=== PATIENT | female | born 1955 | race Caucasian/White ===

== ENCOUNTER → 2017-08-10 | Day surgery (SDC) | payer OTHER, MEDICARE ==
[~2017-08-10] VITALS: Ht 162.6 cm; Wt 99.8 kg
[~2017-08-10] MED LIST: PERCOCET 5-3251 EACH PO
--- NOTE | 2017-08-10 09:24 | Operative Report ---
Operative/Inv Procedure Report Surgery Date: 08/10/17 Name of Procedure: Laparoscopic remomal of band and all components Pre-Operative Diagnosis: GERD, Vomiting, S/P Lap Band Post-Operative Diagnosis: Same Estimated Blood Loss: less than 50ml Surgeon/Stencil Cutter Machine: Chandana Mauricio DO Anesthesia: general endotracheal tube IV Fluids: 1000 cc Drains: None Specimens: None Complications: None Condition: Stable Operative Indication: This is a 62-year-old female who is many years status post lap band. Patient with long standing gastroesophageal reflux disease and vomiting. A laparoscopic removal of the band and all components was discussed in detail. All risks including but not limited to bleeding, infection, and injury to surrounding structures were discussed in detail. The patient understood everything and decided to proceed. Operative/Procedure Note Note: The patient was brought to the operating room and placed on the table in supine position. Venodyne stockings were placed and adequate general endotracheal anesthesia was obtained. The patient was prepped and draped in standard surgical fashion. Began the procedure by making an incision approximately 4-5 cm in length in the right flank over the patient's port. The incision was carried down through subcutaneous tissue to the capsule around the port which was opened using electrocautery. The port and the tubing were identified, tubing was brought up into view and cut just passed the metal connector. The tubing was returned back into the abdominal cavity and then the port was excised using electrocautery cutting all 4 stay sutures. The port was handed off the field and we examined the port site and no obvious bleeding was noted. At that point a 2 cm incision was made supraumbilically and slightly to the left of the midline. Then using a 10 mm 0 laparoscope and a 12 mm clear Visiport the abdominal cavity was accessed. Great care was taken to go through the anterior rectus sheath, the posterior rectus sheath, and through the peritoneum. Once we entered the peritoneum the abdominal cavity was insufflated to 15 mmHg. Upon initial examination we did note the band tubing coursing up under the liver. Accessory trocars were placed, 5 mm the epigastrium for the Andry liver retractor. The liver retractor was inserted and the liver was retracted anteriorly exposing the hiatus and we were able to visualize the band. 5 mm ports are placed in the right upper quadrant, the left upper quadrant, and the left lateral position. The tubing was dissected away from all the adhesions and retracted towards the feet. Capsule around the band buckle was divided using Harmonic scalpel. Once the band was completely free around the stomach the buckle was cut and the band was unbuckled. One end of the band was then cut and the band was removed from around the stomach. The capsule around the stomach was divided using Endo Shiela. Both pieces of the band were removed through the 12 mm port site. The band was examined and appeared intact. All ports were then removed under direct visualization, no bleeding was noted. Subcutaneous tissue of the port site was closed using 2-0 Vicryl suture. Skin was closed using 4-0 Monocryl. Sterile dressings were placed. The patient was successfully extubated and transferred to the recovery room in stable condition. The patient tolerated the procedure well with no Complications. Findings: Lap band in appropriate position, no evidence of erosion, Band and all components removed CC: Christian MADERA,[place]
== END ==
LOC: STS 06-22 07:00 → EDSTATUS 08-03 07:00 → SDA 08-03 07:00 → STS 02:02
DX: Z46.51 Encounter for fitting and adjustment of gastric lap band (principal); K21.9 Gastro-esophageal reflux disease without esophagitis; R11.11 Vomiting without nausea; E66.01 Morbid (severe) obesity due to excess calories; Z68.37 Body mass index [BMI] 37.0-37.9, adult; K44.9 Diaphragmatic hernia without obstruction or gangrene; I10 Essential (primary) hypertension; M54.89 Other dorsalgia; Z79.82 Long term (current) use of aspirin
CPT/HCPCS: J0131; J0690; J1644; J2250; J3490